=== PATIENT | female | born 1995 | race Two or more races ===

== ENCOUNTER 2017-08-10 13:51 | Emergency (ER) | payer OTHER ==
[~2017-08-10] VITALS: Ht 157.5 cm; Wt 77.1 kg
[2017-08-10] MEDS ORDERED: KETO10TA2 PO (19:15)
== END 2017-08-10 19:23 | disposition home or self-care (01) ==
LOC: ER 13:51
DX: B34.9 Viral infection, unspecified (principal); N23 Unspecified renal colic